=== PATIENT | male | born 2000 | race Caucasian/White ===

== ENCOUNTER 2022-02-17 09:10 | Emergency (ER) | payer SELFPAY ==
[2022-02-17 09:21] VITALS: BP 128/99; PULSE 90; RESP 16; TEMP 36.4; O2SAT 99
[2022-02-17] MEDS: OXYMETAZOLINE HCL 0.05% NAS 15 ML BTL (*BKC) 1 SPRAY NASAL (11:06)
[2022-02-17 11:07] VITALS: BP 132/82; PULSE 80; RESP 12; O2SAT 99
--- NOTE | 2022-02-17 11:17 | ED.EPISTAXIS ---
HPI - Epistaxis General Chief complaint: Epistaxis Stated complaint: epistaxis x 2 hours - nasal clamp in place Time Seen by Provider: 02/17/22 10:20 History of Present Illness HPI Narrative: This is a 21-year-old male with past medical history of epistaxis, status post cautery and corrective surgery for septal perforation 10 years ago, who presents to the emergency department complaining of epistaxis beginning approximately 3 hours ago. Patient states he was at work when he began having a nosebleed. It appears to be originating from the right side. Despite clamping it did not improve. He also notes some upper respiratory congestion and nasal drainage consistent with an upper respiratory infection. He denies chest pain or shortness of breath but does complain of some fatigue. Related Data Allergies Allergy/AdvReac Type Severity Reaction Status Date / Time codeine Allergy Nausea and Verified 02/17/22 09:11 Vomiting Review of Systems Review of Systems: CONSTITUTIONAL: Denies fever, chills, or sweats. EYES: Denies visual changes, redness, or discharge. ENT: Epistaxis, rhinorrhea, congestion denies sore throat, or otalgia. CARDIOVASCULAR: Denies chest pain, palpitations, or edema. RESPIRATORY: Denies cough or dyspnea. GASTROINTESTINAL: Denies abdominal pain, nausea, vomiting, or diarrhea. GENITOURINARY: Denies dysuria or hematuria. MUSCULOSKELETAL: Denies back pain, joint pain, or myalgia. NEUROLOGIC: Denies headache, numbness, dizziness, or weakness. PSYCHIATRIC: Denies anxiety or depression. PMFSH Past Medical History Medical History Epistaxis Nasal septal perforation Surgical History Surgical History History of nasal cauterization Social History Social History (Updated 02/17/22 @ 11:19 by Jarrod Chong MD) Smoking status: Never smoker Alcohol intake: current Drinks per week: 2 Substance use: never Exam Narrative: GENERAL: Well-developed, well-nourished, and in no acute distress. HEAD: Normocephalic, atraumatic. EYES: PERRLA and EOMI. ENT: Nasal clamp removed. Nares clear, no rhinorrhea or epistaxis. We have irritation noted in the right nares just inferior to the middle turbinate which appears to be the origin of the patient's bleeding. Mucous membranes moist. Oropharynx without tonsillar hypertrophy exudate or other lesions. No posterior oropharyngeal bleeding noted. CHEST: Clear to auscultation. No respiratory distress. No wheezes rales or rhonchi HEART: Regular rate and rhythm. No murmur heard. Normal peripheral pulses. ABDOMEN: Soft, nontender, nondistended, normal active bowel sounds. EXTREMITIES: Normal range of motion. No edema. NEURO: No focal deficits. Alert and oriented x3. PSYCH: Normal mood and affect. Course Course Emergency Course: 12:20 - The patient was given Afrin with no recurrent nasal bleeding during observation. Advised the patient to begin with direct pressure and return to the emergency department in the event of persistent bleeding. Discussed other return and emergent precautions including signs/symptoms of hemorrhage. The patient voiced understanding and is comfortable with the plan. All questions answered to his satisfaction. Vital Signs Vital signs: Vital Signs Temperature 97.6 F 02/17/22 09:21 Pulse Rate 90 02/17/22 09:21 Respiratory Rate 16 02/17/22 09:21 Blood Pressure 128/99 H 02/17/22 09:21 Pulse Oximetry 99 02/17/22 09:21 Oxygen Delivery Room Air 02/17/22 09:21 Temperature 97.6 F 02/17/22 09:21 Pulse Rate 80 02/17/22 12:33 Respiratory Rate 20 02/17/22 12:33 Blood Pressure 128/78 02/17/22 12:33 Pulse Oximetry 100 02/17/22 12:33 Oxygen Delivery Room Air 02/17/22 09:21 MDM - Epistaxis MDM Narrative Medical decision making narrative: Plan: Afrin, nasal packing if indicated, reassess Diff
[2022-02-17 12:33] VITALS: BP 128/78; PULSE 80; RESP 20; O2SAT 100
== END 2022-02-17 12:34 | disposition home or self-care (01) ==
PROVIDERS: Emergency Provider Preventive Medicine Aerospace Medicine
DX: R04.0 Epistaxis (principal)
CPT/HCPCS: 99283; A9270